=== PATIENT | female | born 1960 | race Caucasian/White ===

== ENCOUNTER 2021-02-08 15:37 | Emergency (ER) | payer BC ==
[~2021-02-08] VITALS: Ht 167.6 cm; Wt 181.4 kg
[~2021-02-08 15:37] MED LIST: AMLODIPINE BESYL5 MG PO; EFFEXOR XR 3737.5 MG PO; LOSARTAN POTAS100 MG PO
[2021-02-08] MEDS ORDERED: CASIRIVIMAB/IMDEVIMAB 10 ML in SODIUM CHLORIDE 0.9% 100 ML IV ONE (16:15)
== END 2021-02-08 16:51 | disposition home or self-care (01) ==
LOC: ER 15:45
DX: R06.02 Shortness of breath (principal); U07.1 COVID-19; E66.01 Morbid (severe) obesity due to excess calories
CPT/HCPCS: 99283; J7050; 99284

== ENCOUNTER 2021-02-09 09:44 | Inpatient (IN) | payer BC ==
[~2021-02-09] VITALS: Ht 167.6 cm; Wt 154.2 kg
[2021-02-09] MEDS ORDERED: SODIUM CHLORIDE 0.9% 1000ML 1,000 ML IV STA (10:22)
[2021-02-09 10:58] LABS: BASOPHILS % 0.2 % (0.0-1.0); HEMATOCRIT 39.5 % (34.2-44.1); HEMOGLOBIN 12.1 g/dL (12.0-16.0); LYMPHOCYTES # (AUTO) 0.8 (1.0-3.2); LYMPHOCYTES % 6.7 % (18.0-39.1); MEAN CORPUSCULAR HEMOGLOBIN 25.9 pg (28-32); MEAN CORPUSCULAR HGB CONC 30.6 g/dL (31-35); MEAN CORPUSCULAR VOLUME 84.6 fL (81-99); MONOCYTES # (AUTO) 0.4 (0.2-0.8); NEUTROPHILS # (AUTO) 11.1 (2.1-6.9); PLATELET COUNT 223 x10e3/uL (140-360); RED BLOOD COUNT 4.67 x10e6/uL (3.6-5.1)
[2021-02-09] MEDS: DEXAMETHASONE SOD PHOS 10 MG/1 ML VIAL IV SCH (11:14)
[2021-02-09] MEDS: CEFTRIAXONE 1 GM in SODIUM CHLORIDE 0.9% 50ML 50 ML IV SCH (11:14)
[2021-02-09] MEDS: ZINC SULFATE 50 MG CAP PO SCH (11:15)
[2021-02-09 11:42] LABS: ALBUMIN 3.3 g/dL (3.5-5.0); ANION GAP 14.6 mmol/L (8-16); CALCIUM 8.5 mg/dL (8.4-10.2); CREATININE, SERUM 1.38 mg/dL (0.57-1.11); POTASSIUM 3.6 mmol/L (3.5-5.1)
[2021-02-09] MEDS ORDERED: REMDESIVIR 200MG 200 MG IV ONE (12:00)
[2021-02-09 12:27] LABS: CREATINE KINASE MB 0.5 ng/mL (0-5.0)
[2021-02-09] MEDS ORDERED: FAMOTIDINE 20 MG/2 ML VIAL IV STA (12:49)
[2021-02-09] MEDS ORDERED: DIPHENHYDRAMINE HCL INJ 50 MG/ML VIAL IV ONE (13:00)
[2021-02-09] MEDS ORDERED: METHYLPREDNISOLONE SOD SUCC 125 MG/2ML VIAL IV ONE (13:00)
[2021-02-09 15:51] LABS: CREATINE KINASE MB 0.5 ng/mL (0-5.0)
[2021-02-09] MEDS: ASCORBIC ACID 500 MG TAB PO SCH (17:51)
[2021-02-09 19:39] VITALS: BP 131/65
[2021-02-09 19:40] VITALS: BP 164/95
[2021-02-09] MEDS: ENOXAPARIN SOD INJ 40 MG/0.4 ML SYR SC SCH (20:36)
[2021-02-09 21:00] VITALS: BP 164/95
[2021-02-10] VITALS (7 sets, daily range): BP systolic 117–151; BP diastolic 61–70
[2021-02-10 05:45] LABS: BASOPHILS % 0.1 % (0.0-1.0); HEMATOCRIT 37.4 % (34.2-44.1); HEMOGLOBIN 11.4 g/dL (12.0-16.0); LYMPHOCYTES # (AUTO) 1.1 (1.0-3.2); LYMPHOCYTES % 15.3 % (18.0-39.1); MEAN CORPUSCULAR HEMOGLOBIN 25.9 pg (28-32); MEAN CORPUSCULAR HGB CONC 30.5 g/dL (31-35); MONOCYTES # (AUTO) 0.3 (0.2-0.8); MONOCYTES % 4.1 % (4.4-11.3); NEUTROPHILS # (AUTO) 5.6 (2.1-6.9); NEUTROPHILS % 79.6 % (38.7-80.0); PLATELET COUNT 213 x10e3/uL (140-360); RED CELL DISTRIBUTION WIDTH 14.7 % (11.7-14.4)
[2021-02-10 06:31] LABS: ALBUMIN/GLOBULIN RATIO 0.8 (0.8-2.0); CALCIUM 8.3 mg/dL (8.4-10.2); CREATININE, SERUM 1.05 mg/dL (0.57-1.11)
[2021-02-10] MEDS ORDERED: SODIUM CHLORIDE 0.9% 50ML 50 ML ONE (07:43)
[2021-02-10 08:21] LABS: CREATINE KINASE MB 0.6 ng/mL (0-5.0)
[2021-02-10] MEDS ORDERED: VENLAFAXINE HCL 37.5MG XR CAP PO SCH (09:00)
[2021-02-10] MEDS ORDERED: SODIUM CHLORIDE 0.9% 250ML 250 ML ONE (09:29)
[2021-02-10] MEDS: DEXAMETHASONE SOD PHOS 10 MG/1 ML VIAL IV SCH (09:46)
[2021-02-10] MEDS: CEFTRIAXONE 1 GM in SODIUM CHLORIDE 0.9% 50ML 50 ML IV SCH (09:46)
[2021-02-10] MEDS: ZINC SULFATE 50 MG CAP PO SCH (09:46)
[2021-02-10] MEDS: ASCORBIC ACID 500 MG TAB PO SCH ×2 (09:46→17:16)
[2021-02-10] MEDS: ENOXAPARIN SOD INJ 40 MG/0.4 ML SYR SC SCH ×2 (09:46→21:15)
[2021-02-10] MEDS ORDERED: SODIUM CHLORIDE 0.9% 1000ML 1,000 ML ONE (13:57)
[2021-02-10] MEDS: REMDESIVIR 100MG 100 MG IV SCH (14:07)
[2021-02-11] VITALS (9 sets, daily range): BP systolic 137–143; BP diastolic 55–81
[2021-02-11] MEDS: CEFTRIAXONE 1 GM in SODIUM CHLORIDE 0.9% 50ML 50 ML IV SCH (08:05)
[2021-02-11] MEDS: DEXAMETHASONE SOD PHOS 10 MG/1 ML VIAL IV SCH (08:05)
[2021-02-11] MEDS: ZINC SULFATE 50 MG CAP PO SCH (08:05)
[2021-02-11] MEDS: ASCORBIC ACID 500 MG TAB PO SCH ×2 (08:05→16:21)
[2021-02-11] MEDS: ENOXAPARIN SOD INJ 40 MG/0.4 ML SYR SC SCH ×2 (08:05→20:26)
[2021-02-11] MEDS: REMDESIVIR 100MG 100 MG IV SCH (13:51)
[2021-02-11 15:35] LABS: FERRITIN 604.66 ng/mL (4.63-204.00)
[2021-02-12] VITALS (8 sets, daily range): BP systolic 132–159; BP diastolic 50–76
[2021-02-12] MEDS: CEFTRIAXONE 1 GM in SODIUM CHLORIDE 0.9% 50ML 50 ML IV SCH (09:48)
[2021-02-12] MEDS: ENOXAPARIN SOD INJ 40 MG/0.4 ML SYR SC SCH ×2 (09:48→21:54)
[2021-02-12] MEDS: ZINC SULFATE 50 MG CAP PO SCH (09:48)
[2021-02-12] MEDS: DEXAMETHASONE SOD PHOS 10 MG/1 ML VIAL IV SCH (09:48)
[2021-02-12] MEDS: ASCORBIC ACID 500 MG TAB PO SCH ×2 (09:48→16:37)
[2021-02-12] MEDS: REMDESIVIR 100MG 100 MG IV SCH (13:27)
[2021-02-12] MEDS ORDERED: ZOLPIDEM TARTRATE 5 MG TAB PO PRN (22:00)
[2021-02-13 01:23] VITALS: BP 139/66
[2021-02-13 05:44] VITALS: BP 157/93
[2021-02-13 07:18] LABS: BASOPHILS % 0.2 % (0.0-1.0); EOSINOPHILS # (AUTO) 0.1 (0.0-0.4); EOSINOPHILS % 0.7 % (0.0-6.0); HEMATOCRIT 37.2 % (34.2-44.1); HEMOGLOBIN 11.4 g/dL (12.0-16.0); LYMPHOCYTES # (AUTO) 1.7 (1.0-3.2); LYMPHOCYTES % 16.7 % (18.0-39.1); MEAN CORPUSCULAR HEMOGLOBIN 25.6 pg (28-32); MEAN CORPUSCULAR HGB CONC 30.6 g/dL (31-35); MEAN CORPUSCULAR VOLUME 83.4 fL (81-99); MONOCYTES # (AUTO) 0.7 (0.2-0.8); MONOCYTES % 6.7 % (4.4-11.3); NEUTROPHILS # (AUTO) 7.4 (2.1-6.9); NEUTROPHILS % 73.5 % (38.7-80.0); PLATELET COUNT 256 x10e3/uL (140-360); RED BLOOD COUNT 4.46 x10e6/uL (3.6-5.1); RED CELL DISTRIBUTION WIDTH 14.4 % (11.7-14.4)
[2021-02-13 08:13] LABS: ANION GAP 14.3 mmol/L (8-16); CALCIUM 8.3 mg/dL (8.4-10.2); POTASSIUM 3.3 mmol/L (3.5-5.1)
[2021-02-13 08:40] LABS: CREATININE, SERUM 0.69 mg/dL (0.57-1.11)
[2021-02-13] MEDS: DEXAMETHASONE SOD PHOS 10 MG/1 ML VIAL IV SCH (09:35)
[2021-02-13] MEDS: ASCORBIC ACID 500 MG TAB PO SCH ×2 (09:35→16:28)
[2021-02-13] MEDS: CEFTRIAXONE 1 GM in SODIUM CHLORIDE 0.9% 50ML 50 ML IV SCH (09:35)
[2021-02-13] MEDS: ZINC SULFATE 50 MG CAP PO SCH (09:35)
[2021-02-13] MEDS: ENOXAPARIN SOD INJ 40 MG/0.4 ML SYR SC SCH ×2 (09:35→21:56)
[2021-02-13] MEDS ORDERED: SODIUM CHLORIDE 0.9% 250ML 250 ML ONE (14:02)
[2021-02-13] MEDS: REMDESIVIR 100MG 100 MG IV SCH (14:17)
[2021-02-13 15:30] VITALS: BP 151/81
[2021-02-13 21:28] VITALS: BP 139/77
[2021-02-13] MEDS ORDERED: CALCIUM CARBONATE 500 MG CHEWABLE TABS PO PRN (21:45)
[2021-02-13] MEDS ORDERED: ACETAMINOPHEN 325 MG TAB PO PRN (22:00)
[2021-02-13 22:38] VITALS: BP 139/77
[2021-02-14 01:08] VITALS: BP 147/81
[2021-02-14 04:42] VITALS: BP 102/64
[2021-02-14 06:33] LABS: BASOPHILS # (AUTO) 0.1 (0.0-0.1); BASOPHILS % 0.5 % (0.0-1.0); EOSINOPHILS # (AUTO) 0.1 (0.0-0.4); EOSINOPHILS % 0.9 % (0.0-6.0); HEMATOCRIT 37.6 % (34.2-44.1); HEMOGLOBIN 11.8 g/dL (12.0-16.0); LYMPHOCYTES # (AUTO) 1.5 (1.0-3.2); LYMPHOCYTES % 14.4 % (18.0-39.1); MEAN CORPUSCULAR HEMOGLOBIN 25.9 pg (28-32); MEAN CORPUSCULAR HGB CONC 31.4 g/dL (31-35); MEAN CORPUSCULAR VOLUME 82.5 fL (81-99); MONOCYTES # (AUTO) 0.8 (0.2-0.8); MONOCYTES % 7.5 % (4.4-11.3); NEUTROPHILS # (AUTO) 7.5 (2.1-6.9); NEUTROPHILS % 71.2 % (38.7-80.0); PLATELET COUNT 244 x10e3/uL (140-360); RED BLOOD COUNT 4.56 x10e6/uL (3.6-5.1); RED CELL DISTRIBUTION WIDTH 14.2 % (11.7-14.4)
[2021-02-14 06:59] LABS: ANION GAP 16.2 mmol/L (8-16); CALCIUM 8.5 mg/dL (8.4-10.2); CREATININE, SERUM 0.67 mg/dL (0.57-1.11); POTASSIUM 3.2 mmol/L (3.5-5.1)
[2021-02-14] MEDS: ENOXAPARIN SOD INJ 40 MG/0.4 ML SYR SC SCH (09:45)
[2021-02-14] MEDS: ZINC SULFATE 50 MG CAP PO SCH (09:45)
[2021-02-14] MEDS: ASCORBIC ACID 500 MG TAB PO SCH (09:45)
[2021-02-14] MEDS: DEXAMETHASONE SOD PHOS 10 MG/1 ML VIAL IV SCH (09:45)
[2021-02-14 10:41] VITALS: BP 91/72
[2021-02-14 20:56] VITALS: BP 159/101
== END 2021-02-14 11:30 | disposition home or self-care (01) | DRG 177 ==
LOC: ER 10:32 → ERHOLD 11:55 → IMCU 19:40
PROVIDERS: ADMIT Internal Medicine; ATTEND Internal Medicine
PROC: 3E0333Z Introduction of Anti-inflammatory into Peripheral Vein, Percutaneous Approach (ICD-10-PCS; principal; 2021-02-09)
PROC: XW033E5 Introduction of Remdesivir Anti-infective into Peripheral Vein, Percutaneous Approach, New Technology Group 5 (ICD-10-PCS; 2021-02-09)
DX: U07.1 COVID-19 (principal); J12.82 Pneumonia due to coronavirus disease 2019; J96.01 Acute respiratory failure with hypoxia; Z68.43 Body mass index [BMI] 50.0-59.9, adult; E11.22 Type 2 diabetes mellitus with diabetic chronic kidney disease; I12.9 Hypertensive chronic kidney disease with stage 1 through stage 4 chronic kidney disease, or unspecified chronic kidney disease; N18.30 Chronic kidney disease, stage 3 unspecified; E66.01 Morbid (severe) obesity due to excess calories; F41.9 Anxiety disorder, unspecified; Z82.49 Family history of ischemic heart disease and other diseases of the circulatory system; Z88.8 Allergy status to other drugs, medicaments and biological substances; D64.9 Anemia, unspecified
CPT/HCPCS: 36415; 71045; 80048; 80053; 82550; 82553; 82728; 83615; 83735; 83880; 84484; 85025; 86140; 87040; 93005; 96360; 99284; J0456; J0696; J1100; J1200; J1650; J2930; J7030; J7050

== ENCOUNTER 2021-02-16 00:35 | Inpatient (IN) | payer BC ==
[~2021-02-16] VITALS: Ht 167.6 cm; Wt 140.2 kg
[2021-02-16] VITALS (8 sets, daily range): BP systolic 112–172; BP diastolic 53–69
[2021-02-16 01:22] LABS: BASOPHILS % 0.3 % (0.0-1.0); EOSINOPHILS # (AUTO) 0.5 (0.0-0.4); EOSINOPHILS % 3.4 % (0.0-6.0); HEMATOCRIT 42.1 % (34.2-44.1); HEMOGLOBIN 13.3 g/dL (12.0-16.0); LYMPHOCYTES # (AUTO) 1.3 (1.0-3.2); LYMPHOCYTES % 9.6 % (18.0-39.1); MEAN CORPUSCULAR HGB CONC 31.6 g/dL (31-35); MEAN CORPUSCULAR VOLUME 82.2 fL (81-99); MONOCYTES # (AUTO) 0.9 (0.2-0.8); MONOCYTES % 6.3 % (4.4-11.3); NEUTROPHILS # (AUTO) 10.3 (2.1-6.9); NEUTROPHILS % 76.5 % (38.7-80.0); PLATELET COUNT 255 x10e3/uL (140-360); RED BLOOD COUNT 5.12 x10e6/uL (3.6-5.1); RED CELL DISTRIBUTION WIDTH 14.6 % (11.7-14.4)
[2021-02-16 01:37] LABS: ALBUMIN 3.2 g/dL (3.5-5.0); ALBUMIN/GLOBULIN RATIO 0.9 (0.8-2.0); ANION GAP 17.3 mmol/L (8-16); CALCIUM 8.6 mg/dL (8.4-10.2); CREATININE, SERUM 0.79 mg/dL (0.57-1.11); POTASSIUM 3.3 mmol/L (3.5-5.1)
[2021-02-16 02:01] LABS: CREATINE KINASE MB 0.3 ng/mL (0-5.0)
[2021-02-16] MEDS ORDERED: SODIUM CHLORIDE FLUSH 10 ML SYR INJ PRN (02:30)
[2021-02-16] MEDS ORDERED: DEXTROSE 50% SYRINGE 50 ML IV PRN (02:30)
[2021-02-16] MEDS ORDERED: ONDANSETRON HCL INJ 2MG/ML 2ML 2 MG/ML VIAL IV PRN (02:30)
[2021-02-16] MEDS ORDERED: HYCODAN 5 MG-1.55 ML PO (03:18)
[2021-02-16] MEDS: ACETAMINOPHEN 325 MG TAB PO PRN ×3 (04:00→20:50)
[2021-02-16] MEDS: INSULIN REGULAR, HUMAN 100 UNIT/1 ML SQ SCH ×4 (07:30→20:47)
[2021-02-16] MEDS ORDERED: CEFTRIAXONE 2 GM in SODIUM CHLORIDE 0.9% 100 ML IV SCH (09:00)
[2021-02-16] MEDS ORDERED: ENOXAPARIN 30 MG/0.3 ML SYR SC SCH (09:00)
[2021-02-16] MEDS: ZINC SULFATE 220 MG CAP PO SCH (09:07)
[2021-02-16] MEDS: ASCORBIC ACID 500 MG TAB PO SCH ×2 (09:07→17:38)
[2021-02-16] MEDS ORDERED: SODIUM CHLORIDE 0.9% 100 ML ONE (09:16)
[2021-02-16 10:28] LABS: CREATINE KINASE MB 0.2 ng/mL (0-5.0)
[2021-02-16 10:29] LABS: ALBUMIN 2.3 g/dL (3.5-5.0); ALBUMIN/GLOBULIN RATIO 0.6 (0.8-2.0); ANION GAP 14.5 mmol/L (8-16); CALCIUM 8.4 mg/dL (8.4-10.2); CREATININE, SERUM 0.77 mg/dL (0.57-1.11); POTASSIUM 3.5 mmol/L (3.5-5.1)
[2021-02-16] MEDS: LINEZOLID 600 MG/D5W 300ML 300 ML IV SCH ×2 (10:49→20:44)
[2021-02-16 10:53] LABS: BASOPHILS # (AUTO) 0.1 (0.0-0.1); BASOPHILS % 0.4 % (0.0-1.0); EOSINOPHILS # (AUTO) 0.5 (0.0-0.4); EOSINOPHILS % 3.9 % (0.0-6.0); HEMOGLOBIN 11.8 g/dL (12.0-16.0); LYMPHOCYTES # (AUTO) 1.7 (1.0-3.2); LYMPHOCYTES % 12.8 % (18.0-39.1); MEAN CORPUSCULAR HGB CONC 31.1 g/dL (31-35); MEAN CORPUSCULAR VOLUME 83.7 fL (81-99); MONOCYTES # (AUTO) 1.2 (0.2-0.8); NEUTROPHILS # (AUTO) 9.2 (2.1-6.9); NEUTROPHILS % 69.8 % (38.7-80.0); PLATELET COUNT 328 x10e3/uL (140-360); RED BLOOD COUNT 4.54 x10e6/uL (3.6-5.1); RED CELL DISTRIBUTION WIDTH 14.5 % (11.7-14.4)
[2021-02-16] MEDS: PIPERACILLIN/TAZOBACTAM 3.375 GM in SODIUM CHLORIDE 0.9% 50ML 50 ML IV SCH ×3 (12:49→23:11)
[2021-02-16] MEDS ORDERED: ENOXAPARIN SODIUM INJ 100 MG/ML SYR SC SCH ×2 (15:00→21:00)
[2021-02-16 17:54] LABS: CREATINE KINASE MB 0.2 ng/mL (0-5.0)
[2021-02-16] MEDS: ENOXAPARIN SODIUM INJ 100 MG/ML SYR SC SCH (20:44)
[2021-02-17] VITALS (8 sets, daily range): BP systolic 123–140; BP diastolic 58–76
[2021-02-17] MEDS: PIPERACILLIN/TAZOBACTAM 3.375 GM in SODIUM CHLORIDE 0.9% 50ML 50 ML IV SCH ×3 (05:16→20:26)
[2021-02-17 06:46] LABS: BASOPHILS # (AUTO) 0.1 (0.0-0.1); BASOPHILS % 0.4 % (0.0-1.0); EOSINOPHILS # (AUTO) 0.5 (0.0-0.4); EOSINOPHILS % 3.2 % (0.0-6.0); HEMATOCRIT 34.5 % (34.2-44.1); HEMOGLOBIN 10.9 g/dL (12.0-16.0); LYMPHOCYTES # (AUTO) 1.1 (1.0-3.2); LYMPHOCYTES % 7.8 % (18.0-39.1); MEAN CORPUSCULAR HEMOGLOBIN 26.2 pg (28-32); MEAN CORPUSCULAR HGB CONC 31.6 g/dL (31-35); MEAN CORPUSCULAR VOLUME 82.9 fL (81-99); MONOCYTES # (AUTO) 0.8 (0.2-0.8); MONOCYTES % 5.7 % (4.4-11.3); NEUTROPHILS # (AUTO) 11.3 (2.1-6.9); NEUTROPHILS % 80.9 % (38.7-80.0); PLATELET COUNT 307 x10e3/uL (140-360); RED BLOOD COUNT 4.16 x10e6/uL (3.6-5.1); RED CELL DISTRIBUTION WIDTH 14.6 % (11.7-14.4)
[2021-02-17 07:20] LABS: ALBUMIN 1.9 g/dL (3.5-5.0); ALBUMIN/GLOBULIN RATIO 0.5 (0.8-2.0); ANION GAP 16.4 mmol/L (8-16); CALCIUM 7.9 mg/dL (8.4-10.2); CREATININE, SERUM 0.76 mg/dL (0.57-1.11); POTASSIUM 3.4 mmol/L (3.5-5.1)
[2021-02-17] MEDS: INSULIN REGULAR, HUMAN 100 UNIT/1 ML SQ SCH ×4 (07:30→20:52)
[2021-02-17] MEDS: ENOXAPARIN SODIUM INJ 100 MG/ML SYR SC SCH ×2 (08:51→20:26)
[2021-02-17] MEDS: ZINC SULFATE 220 MG CAP PO SCH (08:51)
[2021-02-17] MEDS: ASCORBIC ACID 500 MG TAB PO SCH ×2 (08:51→17:23)
[2021-02-17] MEDS: BARICITINIB 2 MG TABLET PO SCH (08:51)
[2021-02-17] MEDS: LINEZOLID 600 MG/D5W 300ML 300 ML IV SCH ×2 (09:17→20:26)
[2021-02-17] MEDS ORDERED: SODIUM CHLORIDE 0.9% 250ML 250 ML ONE (14:36)
[2021-02-17] MEDS: ACETAMINOPHEN 325 MG TAB PO PRN (20:42)
[2021-02-18] VITALS (8 sets, daily range): BP systolic 118–144; BP diastolic 56–83
[2021-02-18] MEDS: PIPERACILLIN/TAZOBACTAM 3.375 GM in SODIUM CHLORIDE 0.9% 50ML 50 ML IV SCH ×4 (02:00→22:00)
[2021-02-18 06:30] LABS: BASOPHILS % 0.2 % (0.0-1.0); EOSINOPHILS # (AUTO) 0.3 (0.0-0.4); EOSINOPHILS % 2.6 % (0.0-6.0); HEMATOCRIT 36.8 % (34.2-44.1); HEMOGLOBIN 11.4 g/dL (12.0-16.0); LYMPHOCYTES # (AUTO) 1.2 (1.0-3.2); LYMPHOCYTES % 9.5 % (18.0-39.1); MEAN CORPUSCULAR VOLUME 83.8 fL (81-99); MONOCYTES # (AUTO) 0.7 (0.2-0.8); MONOCYTES % 5.4 % (4.4-11.3); NEUTROPHILS # (AUTO) 10.5 (2.1-6.9); NEUTROPHILS % 80.5 % (38.7-80.0); PLATELET COUNT 302 x10e3/uL (140-360); RED BLOOD COUNT 4.39 x10e6/uL (3.6-5.1); RED CELL DISTRIBUTION WIDTH 14.4 % (11.7-14.4)
[2021-02-18 07:00] LABS: ALBUMIN 1.9 g/dL (3.5-5.0); ALBUMIN/GLOBULIN RATIO 0.5 (0.8-2.0); ANION GAP 17.2 mmol/L (8-16); CALCIUM 8.2 mg/dL (8.4-10.2); CREATININE, SERUM 0.73 mg/dL (0.57-1.11); POTASSIUM 3.2 mmol/L (3.5-5.1)
[2021-02-18] MEDS: INSULIN REGULAR, HUMAN 100 UNIT/1 ML SQ SCH ×4 (07:16→20:11)
[2021-02-18] MEDS: ZINC SULFATE 220 MG CAP PO SCH (08:30)
[2021-02-18] MEDS: ASCORBIC ACID 500 MG TAB PO SCH ×2 (08:30→17:40)
[2021-02-18] MEDS: BARICITINIB 2 MG TABLET PO SCH (08:30)
[2021-02-18] MEDS: LINEZOLID 600 MG/D5W 300ML 300 ML IV SCH ×2 (08:31→20:12)
[2021-02-18] MEDS: ENOXAPARIN SODIUM INJ 100 MG/ML SYR SC SCH ×2 (08:31→20:17)
[2021-02-18] MEDS ORDERED: POTASSIUM CHLORIDE 20 MEQ TAB CR PO ONE (11:00)
[2021-02-18] MEDS ORDERED: REMDESIVIR 200MG 200 MG in SODIUM CHLORIDE 0.9% 100 ML 100 ML IV ONE (11:15)
[2021-02-18] MEDS: DEXAMETHASONE SOD PHOS 10 MG/1 ML VIAL IV SCH (17:40)
[2021-02-18] MEDS: ACETAMINOPHEN 325 MG TAB PO PRN (20:19)
[2021-02-19] VITALS (7 sets, daily range): BP systolic 120–163; BP diastolic 50–80
[2021-02-19] MEDS: PIPERACILLIN/TAZOBACTAM 3.375 GM in SODIUM CHLORIDE 0.9% 50ML 50 ML IV SCH ×4 (02:24→21:00)
[2021-02-19] MEDS: INSULIN REGULAR, HUMAN 100 UNIT/1 ML SQ SCH ×4 (07:30→21:05)
[2021-02-19 08:09] LABS: BASOPHILS % 0.3 % (0.0-1.0); EOSINOPHILS % 0.2 % (0.0-6.0); HEMATOCRIT 34.8 % (34.2-44.1); HEMOGLOBIN 10.8 g/dL (12.0-16.0); LYMPHOCYTES # (AUTO) 1.1 (1.0-3.2); LYMPHOCYTES % 10.5 % (18.0-39.1); MEAN CORPUSCULAR HEMOGLOBIN 25.6 pg (28-32); MEAN CORPUSCULAR VOLUME 82.5 fL (81-99); MONOCYTES # (AUTO) 0.4 (0.2-0.8); MONOCYTES % 3.8 % (4.4-11.3); NEUTROPHILS # (AUTO) 8.4 (2.1-6.9); NEUTROPHILS % 83.9 % (38.7-80.0); PLATELET COUNT 299 x10e3/uL (140-360); RED BLOOD COUNT 4.22 x10e6/uL (3.6-5.1); RED CELL DISTRIBUTION WIDTH 13.8 % (11.7-14.4)
[2021-02-19 08:32] LABS: ALBUMIN 1.9 g/dL (3.5-5.0); ALBUMIN/GLOBULIN RATIO 0.4 (0.8-2.0); ANION GAP 14.2 mmol/L (8-16); CALCIUM 8.5 mg/dL (8.4-10.2); CREATININE, SERUM 0.76 mg/dL (0.57-1.11); POTASSIUM 4.2 mmol/L (3.5-5.1)
[2021-02-19] MEDS: BARICITINIB 2 MG TABLET PO SCH (10:04)
[2021-02-19] MEDS: ENOXAPARIN SODIUM INJ 100 MG/ML SYR SC SCH ×2 (10:04→21:03)
[2021-02-19] MEDS: ASCORBIC ACID 500 MG TAB PO SCH ×2 (10:04→17:12)
[2021-02-19] MEDS: DEXAMETHASONE SOD PHOS 10 MG/1 ML VIAL IV SCH (10:04)
[2021-02-19] MEDS: ZINC SULFATE 220 MG CAP PO SCH (10:04)
[2021-02-19] MEDS ORDERED: REMDESIVIR 100 MG IV SCH (11:15)
[2021-02-19] MEDS: LINEZOLID 600 MG/D5W 300ML 300 ML IV SCH ×2 (13:08→22:04)
[2021-02-20] VITALS (8 sets, daily range): BP systolic 138–177; BP diastolic 37–78
[2021-02-20] MEDS: PIPERACILLIN/TAZOBACTAM 3.375 GM in SODIUM CHLORIDE 0.9% 50ML 50 ML IV SCH ×4 (02:27→19:52)
[2021-02-20] MEDS: INSULIN REGULAR, HUMAN 100 UNIT/1 ML SQ SCH ×4 (07:30→21:01)
[2021-02-20] MEDS: ASCORBIC ACID 500 MG TAB PO SCH ×2 (08:32→17:17)
[2021-02-20] MEDS: DEXAMETHASONE SOD PHOS 10 MG/1 ML VIAL IV SCH (08:32)
[2021-02-20] MEDS: ENOXAPARIN SODIUM INJ 100 MG/ML SYR SC SCH ×2 (08:32→20:54)
[2021-02-20] MEDS: BARICITINIB 2 MG TABLET PO SCH (08:32)
[2021-02-20] MEDS: ZINC SULFATE 220 MG CAP PO SCH (08:32)
[2021-02-20 09:40] LABS: BASOPHILS % 0.3 % (0.0-1.0); EOSINOPHILS # (AUTO) 0.2 (0.0-0.4); HEMATOCRIT 37.1 % (34.2-44.1); HEMOGLOBIN 11.5 g/dL (12.0-16.0); LYMPHOCYTES # (AUTO) 1.9 (1.0-3.2); LYMPHOCYTES % 12.1 % (18.0-39.1); MEAN CORPUSCULAR VOLUME 83.9 fL (81-99); MONOCYTES # (AUTO) 0.7 (0.2-0.8); MONOCYTES % 4.5 % (4.4-11.3); NEUTROPHILS # (AUTO) 12.8 (2.1-6.9); NEUTROPHILS % 80.8 % (38.7-80.0); PLATELET COUNT 313 x10e3/uL (140-360); RED BLOOD COUNT 4.42 x10e6/uL (3.6-5.1); RED CELL DISTRIBUTION WIDTH 14.1 % (11.7-14.4)
[2021-02-20 10:03] LABS: ALBUMIN 2.1 g/dL (3.5-5.0); ALBUMIN/GLOBULIN RATIO 0.5 (0.8-2.0); ANION GAP 15.6 mmol/L (8-16); CALCIUM 8.5 mg/dL (8.4-10.2); CREATININE, SERUM 0.88 mg/dL (0.57-1.11); POTASSIUM 3.6 mmol/L (3.5-5.1)
[2021-02-20] MEDS: LINEZOLID 600 MG/D5W 300ML 300 ML IV SCH ×2 (11:47→20:54)
[2021-02-20] MEDS ORDERED: SODIUM CHLORIDE 0.9% 50ML 50 ML ONE (12:56)
[2021-02-21] VITALS (8 sets, daily range): BP systolic 138–187; BP diastolic 53–71
[2021-02-21] MEDS: PIPERACILLIN/TAZOBACTAM 3.375 GM in SODIUM CHLORIDE 0.9% 50ML 50 ML IV SCH ×2 (02:59→09:24)
[2021-02-21] MEDS: INSULIN REGULAR, HUMAN 100 UNIT/1 ML SQ SCH ×4 (07:28→21:00)
[2021-02-21 08:52] LABS: BASOPHILS % 0.3 % (0.0-1.0); EOSINOPHILS # (AUTO) 0.2 (0.0-0.4); EOSINOPHILS % 1.7 % (0.0-6.0); HEMATOCRIT 34.4 % (34.2-44.1); HEMOGLOBIN 10.5 g/dL (12.0-16.0); LYMPHOCYTES # (AUTO) 2.6 (1.0-3.2); LYMPHOCYTES % 19.7 % (18.0-39.1); MEAN CORPUSCULAR HEMOGLOBIN 25.8 pg (28-32); MEAN CORPUSCULAR HGB CONC 30.5 g/dL (31-35); MEAN CORPUSCULAR VOLUME 84.5 fL (81-99); MONOCYTES # (AUTO) 0.8 (0.2-0.8); MONOCYTES % 5.8 % (4.4-11.3); NEUTROPHILS # (AUTO) 9.4 (2.1-6.9); NEUTROPHILS % 71.3 % (38.7-80.0); PLATELET COUNT 312 x10e3/uL (140-360); RED BLOOD COUNT 4.07 x10e6/uL (3.6-5.1); RED CELL DISTRIBUTION WIDTH 14.2 % (11.7-14.4)
[2021-02-21 09:15] LABS: ALBUMIN 2.1 g/dL (3.5-5.0); ALBUMIN/GLOBULIN RATIO 0.6 (0.8-2.0); ANION GAP 15.5 mmol/L (8-16); CALCIUM 8.3 mg/dL (8.4-10.2); CREATININE, SERUM 0.82 mg/dL (0.57-1.11); POTASSIUM 3.5 mmol/L (3.5-5.1)
[2021-02-21] MEDS: BARICITINIB 2 MG TABLET PO SCH (09:24)
[2021-02-21] MEDS: DEXAMETHASONE SOD PHOS 10 MG/1 ML VIAL IV SCH (09:24)
[2021-02-21] MEDS: ASCORBIC ACID 500 MG TAB PO SCH ×3 (09:24→17:12)
[2021-02-21] MEDS: LINEZOLID 600 MG/D5W 300ML 300 ML IV SCH (09:25)
[2021-02-21] MEDS: ZINC SULFATE 220 MG CAP PO SCH (09:25)
[2021-02-21] MEDS: ENOXAPARIN SODIUM INJ 100 MG/ML SYR SC SCH ×2 (09:25→21:00)
[2021-02-21] MEDS ORDERED: SODIUM CHLORIDE 0.9% 250ML 250 ML ONE (12:05)
[2021-02-21] MEDS: AMLODIPINE BESYLATE 5 MG TAB PO SCH (22:00)
[2021-02-21] MEDS: LOSARTAN POTASSIUM 100 MG TAB PO SCH (22:00)
[2021-02-22] VITALS (8 sets, daily range): BP systolic 127–164; BP diastolic 56–88
[2021-02-22 07:04] LABS: BASOPHILS % 0.3 % (0.0-1.0); EOSINOPHILS # (AUTO) 0.2 (0.0-0.4); EOSINOPHILS % 1.3 % (0.0-6.0); HEMATOCRIT 33.7 % (34.2-44.1); HEMOGLOBIN 10.6 g/dL (12.0-16.0); LYMPHOCYTES # (AUTO) 2.4 (1.0-3.2); LYMPHOCYTES % 19.8 % (18.0-39.1); MEAN CORPUSCULAR HEMOGLOBIN 26.3 pg (28-32); MEAN CORPUSCULAR HGB CONC 31.5 g/dL (31-35); MEAN CORPUSCULAR VOLUME 83.6 fL (81-99); MONOCYTES # (AUTO) 0.7 (0.2-0.8); MONOCYTES % 5.6 % (4.4-11.3); NEUTROPHILS # (AUTO) 8.6 (2.1-6.9); NEUTROPHILS % 71.2 % (38.7-80.0); PLATELET COUNT 311 x10e3/uL (140-360); RED BLOOD COUNT 4.03 x10e6/uL (3.6-5.1); RED CELL DISTRIBUTION WIDTH 14.1 % (11.7-14.4)
[2021-02-22 07:26] LABS: ALBUMIN 2.2 g/dL (3.5-5.0); ALBUMIN/GLOBULIN RATIO 0.6 (0.8-2.0); ANION GAP 13.7 mmol/L (8-16); CALCIUM 8.6 mg/dL (8.4-10.2); CREATININE, SERUM 0.77 mg/dL (0.57-1.11); POTASSIUM 3.7 mmol/L (3.5-5.1)
[2021-02-22] MEDS: INSULIN REGULAR, HUMAN 100 UNIT/1 ML SQ SCH ×4 (07:30→21:00)
[2021-02-22] MEDS ORDERED: DEXAMETHASONE SOD PHOS 10 MG/1 ML VIAL IV SCH (09:00)
[2021-02-22] MEDS: AMLODIPINE BESYLATE 5 MG TAB PO SCH (09:05)
[2021-02-22] MEDS: DEXAMETHASONE SOD PHOS 10 MG/1 ML VIAL IV SCH (09:05)
[2021-02-22] MEDS: LOSARTAN POTASSIUM 100 MG TAB PO SCH (09:05)
[2021-02-22] MEDS: BARICITINIB 2 MG TABLET PO SCH (09:06)
[2021-02-22] MEDS: ASCORBIC ACID 500 MG TAB PO SCH ×3 (09:06→17:01)
[2021-02-22] MEDS: ZINC SULFATE 220 MG CAP PO SCH (09:06)
[2021-02-22] MEDS: ENOXAPARIN SODIUM INJ 100 MG/ML SYR SC SCH ×2 (09:06→21:00)
[2021-02-23] VITALS (7 sets, daily range): BP systolic 120–165; BP diastolic 59–71
[2021-02-23] MEDS: INSULIN REGULAR, HUMAN 100 UNIT/1 ML SQ SCH ×4 (07:30→21:11)
[2021-02-23] MEDS: ASCORBIC ACID 500 MG TAB PO SCH ×2 (08:43→16:57)
[2021-02-23] MEDS: DEXAMETHASONE SOD PHOS 10 MG/1 ML VIAL IV SCH (08:43)
[2021-02-23] MEDS: AMLODIPINE BESYLATE 5 MG TAB PO SCH (08:43)
[2021-02-23] MEDS: LOSARTAN POTASSIUM 100 MG TAB PO SCH (08:43)
[2021-02-23] MEDS: BARICITINIB 2 MG TABLET PO SCH (08:43)
[2021-02-23] MEDS: ENOXAPARIN SODIUM INJ 100 MG/ML SYR SC SCH (08:44)
[2021-02-23] MEDS: ZINC SULFATE 220 MG CAP PO SCH (08:44)
[2021-02-24] VITALS: BP 147/71
[2021-02-24 04:00] VITALS: BP 143/66
[2021-02-24] MEDS: INSULIN REGULAR, HUMAN 100 UNIT/1 ML SQ SCH ×3 (07:30→16:59)
[2021-02-24 08:00] VITALS: BP 141/58
[2021-02-24] MEDS: DEXAMETHASONE SOD PHOS 10 MG/1 ML VIAL IV SCH (08:50)
[2021-02-24] MEDS: BARICITINIB 2 MG TABLET PO SCH (08:51)
[2021-02-24] MEDS: ASCORBIC ACID 500 MG TAB PO SCH ×2 (08:52→16:43)
[2021-02-24] MEDS: ZINC SULFATE 220 MG CAP PO SCH (08:52)
[2021-02-24] MEDS: AMLODIPINE BESYLATE 5 MG TAB PO SCH (08:58)
[2021-02-24] MEDS: LOSARTAN POTASSIUM 100 MG TAB PO SCH (08:58)
[2021-02-24 12:00] VITALS: BP 140/62
[2021-02-24 17:14] VITALS: BP 147/88
== END 2021-02-24 17:30 | disposition home or self-care (01) | DRG 871 ==
LOC: ER 00:49 → ERHOLD 02:32 → IMCU 03:09
PROVIDERS: ADMIT Internal Medicine; ATTEND Internal Medicine
PROC: 8E0ZXY6 Isolation (ICD-10-PCS; principal; 2021-02-16)
PROC: XW033E5 Introduction of Remdesivir Anti-infective into Peripheral Vein, Percutaneous Approach, New Technology Group 5 (ICD-10-PCS; 2021-02-18)
DX: A41.89 Other specified sepsis (principal); U07.1 COVID-19; J12.89 Other viral pneumonia; J96.01 Acute respiratory failure with hypoxia; Z68.42 Body mass index [BMI] 45.0-49.9, adult; E66.01 Morbid (severe) obesity due to excess calories; G47.30 Sleep apnea, unspecified; I10 Essential (primary) hypertension
CPT/HCPCS: 36415; 71045; 80053; 82550; 82553; 82948; 83735; 83880; 84484; 85025; 85379; 86140; 87040; 93005; 93306; 93970; 94660; 99285; J0456; J0696; J1100; J1650; J1817; J2020; J2543; J7050; U0002

== ENCOUNTER 2025-03-10 17:29 | Emergency (ER) | payer BC ==
[~2025-03-10] VITALS: Ht 162.6 cm; Wt 136.1 kg
[~2025-03-10 17:29] MED LIST changes: +HYCODAN 5 MG-1.55 ML PO
[2025-03-10 18:16] VITALS: PULSE 89; RESP 18; TEMP 97.7
[2025-03-10 21:22] VITALS: BP 171/86; O2SAT 98
== END 2025-03-10 21:12 | disposition home or self-care (01) ==
LOC: ER 17:35
DX: Z45.2 Encounter for adjustment and management of vascular access device (principal); I10 Essential (primary) hypertension; E66.01 Morbid (severe) obesity due to excess calories
CPT/HCPCS: 99283

== ENCOUNTER 2025-04-06 13:04 | Emergency (ER) | payer BC ==
[~2025-04-06] VITALS: Ht 162.6 cm; Wt 136.1 kg
[2025-04-06 13:08] VITALS: TEMP 98.4
[2025-04-06 13:38] LABS: BASOPHILS % 0.3 % (0.0-1.0); EOSINOPHILS % 3.3 % (0.0-6.0); LYMPHOCYTES % 17.7 % (18.0-39.1); MONOCYTES % 7.6 % (4.4-11.3); NEUTROPHILS % 70.3 % (38.7-80.0); RED CELL DISTRIBUTION WIDTH 15.9 % (11.7-14.4)
[2025-04-06 13:59] LABS: EST GLOMERULAR FILTRATION RATE 78.0 ML/MIN (>=60)
[2025-04-06 17:00] VITALS: PULSE 81; RESP 18; O2SAT 99
[2025-04-06] MEDS: SODIUM CHLORIDE 0.9% 1000ML 1,000 ML IV STA (17:13)
== END 2025-04-06 18:48 | disposition home or self-care (01) ==
LOC: ER 13:14
DX: R11.2 Nausea with vomiting, unspecified (principal); R53.81 Other malaise; R51.9 Headache, unspecified; I10 Essential (primary) hypertension; I72.2 Aneurysm of renal artery; K76.0 Fatty (change of) liver, not elsewhere classified; R16.2 Hepatomegaly with splenomegaly, not elsewhere classified; E66.01 Morbid (severe) obesity due to excess calories
CPT/HCPCS: 36415; 70450; 74176; 80053; 82550; 83690; 83880; 84484; 85025; 93005; 99284; J7030